=== PATIENT | male | born 2000 | race Caucasian/White ===

== ENCOUNTER 2018-05-12 14:39 | Outpatient (CLI) | payer OTHER ==
--- NOTE | 2018-05-12 16:14 | RAD ---
LEFT SHOULDER ARTHROGRAM: 05/12/18 CLINICAL HISTORY: Left shoulder pain. History of prior labral injury. PROCEDURE: Informed consent was obtained. The patient was escorted to the Procedural Suite. Rn Child imaging of the left shoulder was performed. Subsequently, the left shoulder was then prepped and draped in the catie darlan sterile fashion. Topical anesthesia with buffered 1% Lidocaine was achieved. A 22 gauge needle w as then uneventfully advanced to the left shoulder joint, confirming a small volume radiopaque contra st. Afterwards, 9 mL contrast cocktail containing gadolinium radiopaque contrast with saline, epineph rine, lidocaine was instilled into the left glenohumeral joint, confirmed with fluoroscopic imaging. Needle was removed. Patient tolerated the procedure well. No procedural complications were evident. P claudia was transferred to MRI to undergo MR shoulder arthrogram imaging. Reference separate report fo r further details. IMPRESSION: Technically successful fluoroscopic guided left shoulder arthrogram. POS: [facility]
--- NOTE | 2018-05-12 18:24 | MRI ---
MR ARTHROGRAM OF THE LEFT SHOULDER 05/12/18 INDICATION: Recurrent dislocations of the left shoulder after history of labral tear. TECHNIQUE: Multiplanar and multisequence MR images were obtained of the left shoulder following the intra-articu lar administration of dilute gadolinium solution. Please see the separately dictated left shoulder ar throgram for details concerning the injection technique. FINDINGS: There is an acute on chronic Hill-Sachs deformity involving the posterior superior aspect of the heri ral head. There is a healed osseous Bankart lesion involving the anterior inferior glenoid, most evid ent on the ABER image 16 of series 3. There is prominent degenerative fraying and hypertrophy of the anterior inferior glenoid labrum with a partial thickness tear involving the anterior glenoid labrum seen best on image 12 of series 10. The biceps anchor complex appears intact. No SLAP tear is demonstrated. Full thickness chondral thinning is seen involving the anterior inferior aspect of the glenoid consis tent with patient's likely prior injury. No intra-articular body is evident. The anterior band at inferior glenohumeral ligament does attach to the anterior inferior lip of the g lenoid. The rotator cuff demonstrates a partial thickness high grade bursal surface tear involving the infras pinatus near the insertion best seen on image 15 of series 6. This involves approximately 75% of the tendon thickness. This measures 7 mm in its greatest mediolateral dimension. Biceps tendon is located . No muscular atrophy is present. AC joint appears within normal limits. IMPRESSION: 1. Postsurgical change related to prior Bankart repair. There is healing of the Bankart repair. However, there is some degenerative hypertrophy and a partial thickness tear involving the anterior i nferior glenoid labrum. There is full thickness chondral thinning involving the anterior inferior asp ect of the glenoid likely related to prior injury. 2. High grade partial thickness, bursal surface tear of the anterior infraspinatus near the foot print measuring 7.5 mm and involving approximately 75% of the tendon thickness. 3. Acute on chronic Hill-Sachs deformity of the posterior superior humeral head. POS: [facility]
== END 2018-05-12 14:40 | disposition home or self-care (01) ==
LOC: RAD 14:39
PROVIDERS: ATTEND Orthopaedic Surgery
DX: M24.412 Recurrent dislocation, left shoulder (principal); S43.492A Other sprain of left shoulder joint, initial encounter; S46.012A Strain of muscle(s) and tendon(s) of the rotator cuff of left shoulder, initial encounter; M21.822 Other specified acquired deformities of left upper arm; Z98.890 Other specified postprocedural states
CPT/HCPCS: 23350

== ENCOUNTER 2018-09-25 15:31 | Outpatient (CLI) | payer OTHER ==
[2018-09-25 16:14] LABS: #Eosinphils 0.1 thou/uL (0.0-0.7); #Lymphocytes 1.9 thou/uL (1.20-3.40); #Monocytes 0.5 thou/uL (0.11-0.59); #Neutrophils 3.5 thou/uL (1.40-6.50); %Basophils 0.5 % (0.0-1.0); %Lymphocytes 31.7 % (28.0-48.0); %Monocytes 8.1 % (0.0-4.0); %Neutrophils 58.6 % (31.0-61.0); Hemoglobin 15.5 g/dL (14.0-18.0); Mean Corpuscular HGB CONC 35.2 g/dL (32.0-36.0); Mean Corpuscular Hemoglobin 30.4 pg (25.0-35.0); Mean Corpuscular Volume 86.4 fL (78.0-98.0); Mean Platelet Volume 6.9 fL (7.4-10.4); Platelet Count 266 thou/uL (130-400); RBC Distribution Width 11.6 % (11.5-14.5); Red Blood Cell (RBC) Count 5.11 mill/uL (4.00-5.20)
[2018-09-25 16:41] LABS: Anion Gap 12 mmol/L (10-20); BUN (Urea Nitrogen) 14 mg/dL (8.9-20.6); Calc. Creatinine Clearance 0 mL/min (70-130); Calcium 10.1 mg/dL (7.8-10.44); Carbon Dioxide 30 mmol/L (22-29); Chloride 102 mmol/L (98-107); Estimated GFR-MDRD Greater than 90; Glucose 86 mg/dL (70-105); Potassium 4.3 mmol/L (3.5-5.1); Sodium 140 mmol/L (136-145)
== END 2018-09-25 15:32 | disposition home or self-care (01) ==
LOC: LABBT 15:31
PROVIDERS: ATTEND Orthopaedic Surgery
DX: Z01.812 Encounter for preprocedural laboratory examination (principal); S43.402A Unspecified sprain of left shoulder joint, initial encounter; M75.102 Unspecified rotator cuff tear or rupture of left shoulder, not specified as traumatic
CPT/HCPCS: 80048; 85025

== ENCOUNTER 2018-10-05 05:51 | Day surgery (SDC) | payer OTHER ==
[2018-09-25 15:51] VITALS: BMI 22.8
[2018-10-05] MEDS ORDERED: Fentanyl 100 MCG/2 ML VIAL ONE ×2 (06:22→07:22)
[2018-10-05] MEDS ORDERED: Midazolam HCl 2 mg/2 ml Vial ONE (06:22)
[2018-10-05] MEDS ORDERED: CEFAZOLIN 2 GM/50 ML BAG ONE (06:26)
[2018-10-05] MEDS ORDERED: HYDROcodone/Acetaminophen 5/325 mg Tablet PO PRN ×2 (07:31)
[2018-10-05] MEDS ORDERED: traMADol HCl 50 MG TAB PO PRN ×2 (07:31)
[2018-10-05] MEDS ORDERED: Ondansetron PF 4 MG/2 ML Vial IVP PRN (07:31)
[2018-10-05] MEDS ORDERED: Zolpidem Tartrate 5 MG TAB PO PRN (07:31)
[2018-10-05] MEDS ORDERED: Ropivacaine 0.2% 550 ML 550 ML NERVE BLCK SCH (07:31)
[2018-10-05] MEDS ORDERED: Promethazine HCl 25 MG/ML VIAL IM PRN (07:31)
[2018-10-05] MEDS ORDERED: Ketorolac Tromethamine 30 MG/ML VIAL IVP PRN (07:31)
[2018-10-05] MEDS ORDERED: Fentanyl 100 MCG/2 ML VIAL IV PRN (07:32)
[2018-10-05] MEDS ORDERED: ePHEDrine/0.9% NaCl/PF SYRINGE 50 mg/10 ml ONE (09:57)
[2018-10-05] MEDS ORDERED: Glycopyrrolate 0.2 MG/ML 5 ML SYRINGE ONE (09:57)
[2018-10-05] MEDS ORDERED: Lidocaine 1% PF 5 ML VIAL ONE (09:57)
[2018-10-05] MEDS ORDERED: Dexamethasone 20 MG/5 ML VIAL ONE (09:57)
[2018-10-05] MEDS ORDERED: Ketorolac Tromethamine 30 MG/ML VIAL ONE (09:57)
[2018-10-05] MEDS ORDERED: PROPOFOL 200 MG/20 ML VIAL ONE (09:57)
[2018-10-05] MEDS ORDERED: Ondansetron PF 4 MG/2 ML Vial ONE (09:57)
--- NOTE | 2018-10-05 15:04 | OP ---
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 PROCEDURE PERFORMED: Open Bankart repair and open removal of implant, deep. WIND TURBINE ERECTOR: Dr. Lebron. BLOOD LOSS: Less than 100. SPECIMENS: None. DRAIN: None. COMPLICATIONS: None. DESCRIPTION OF PROCEDURE: The patient was taken to the operating room, where general anesthesia was induced. He was placed in the beach-chair position. His left arm was prepped and draped in the usual sterile fashion. I made a modified deltopectoral approach. Exposure was somewhat difficult due to previous surgery. I was able to get a good peel between the subscapularis and the capsule. The capsule was cut from the interval all the way down to the 6 o'clock position under direct visualization. There was a large Bankart tear. There were multiple anchors in place, which were not affixing anything. Anchors were placed fairly medial on the neck. I removed these anchors and sutures. I freshened up the glenoid neck with curette and used to an osteotome to uzair petal the bone to get a good fresh bleeding surface. I placed 4 Arthrex 3.0 suture anchors at the articular margin and then passed horizontal mattress sutures inside out. A total of 5 sutures were used to totally obliterate the previous Bankart lesion down to bleeding bone. The capsule was then closed with some superior and lateral advancement to decrease the inferior pouch. A total of 8 horizontal mattress sutures were used here. The subscapularis was then repaired back anatomically with #1 Ethibond sutures and reinforced with #2 Vicryl. Irrigation was performed between all layers. Subcutaneous tissue was closed with 2-0 Vicryl and skin was closed with rohan. Sterile dressings were applied. Job ID: [id number]
[2018-10-05] MEDS ORDERED: Ropivacaine 0.2% HCl/PF (40 MG/20 ML VIAL) ONE (19:10)
[2018-10-05] MEDS ORDERED: Ropivacaine 0.5% HCl/PF (150 MG/30 ML VIAL) ONE (19:10)
== END 2018-10-05 13:08 | disposition home or self-care (01) ==
LOC: SDC 05:51
PROVIDERS: ATTEND Orthopaedic Surgery
PROC: 0RQK0ZZ Repair Left Shoulder Joint, Open Approach (ICD-10-PCS; principal; 2018-10-05)
DX: M24.412 Recurrent dislocation, left shoulder (principal); S43.492A Other sprain of left shoulder joint, initial encounter; Z98.890 Other specified postprocedural states
CPT/HCPCS: A4306; J2250; J2795; J3010; J3370